=== PATIENT | female | born 1975 | race Caucasian/White ===

== ENCOUNTER 2024-03-13 06:25 | Day surgery (SDC) | payer MEDICARE ==
[2024-02-29 10:30] VITALS: BMI 32.4
[2024-03-13] MEDS ORDERED: Bupivacaine/Epinephrine 0.25% 30 ML VIAL ONE (12:39)
[2024-03-13] MEDS ORDERED: Acetaminophen 500 MG TAB ONE (12:39)
[2024-03-13] MEDS ORDERED: oxyCODONE 5 MG TAB ONE (12:39)
[2024-03-13 16:50] LABS: HBsAg Index 0.25 S/CO (0-0.99); HIV (1/2) Antibody/Antigen Non-Reactive (NonReactive); HIV 1/2 INDEX 0.11 S/CO (<1.00); Hep B Surf Ag Non-Reactive S/CO (NonReactive)
[2024-03-13 20:34] LABS: Hep C IgG Ab NONREACTIVE S/CO (NonReactive); Hep C Index 0.48 S/CO (0-0.79)
== END 2024-03-13 14:45 | disposition home or self-care (01) ==
LOC: CSHMAMMO 06:25
PROVIDERS: ATTEND Specialist
PROC: 0H95XZX Drainage of Chest Skin, External Approach, Diagnostic (ICD-10-PCS; principal; 2024-03-13)
DX: N60.11 Diffuse cystic mastopathy of right breast (principal); N60.21 Fibroadenosis of right breast; R92.1 Mammographic calcification found on diagnostic imaging of breast; N62 Hypertrophy of breast; N60.91 Unspecified benign mammary dysplasia of right breast; I95.9 Hypotension, unspecified; D64.9 Anemia, unspecified; I10 Essential (primary) hypertension; Z86.73 Personal history of transient ischemic attack (TIA), and cerebral infarction without residual deficits; Z88.8 Allergy status to other drugs, medicaments and biological substances; Z79.82 Long term (current) use of aspirin; Z79.899 Other long term (current) drug therapy; Z88.5 Allergy status to narcotic agent; Z88.6 Allergy status to analgesic agent
CPT/HCPCS: 19125; 19281; 76098; 86803; 87340; 87389; C1713; 88307